=== PATIENT | male | born 1985 | race Hispanic/Latino ===

== ENCOUNTER 2018-11-21 13:30 | Outpatient (AMBR) | payer MEDICAID, SELFPAY ==
--- NOTE | 2018-11-03 11:50 | PT.ODAYNRPT ---
PT Outpatient Daily Note Date of Service: November 03, 2018 OP Daily Note Visit Reasons: knee pain Outpatient Physical Therapy Treatment Date: 11/03/18 Subjective: Pt reports ankle swelling and numbness and he is walking with a cane with low pain. Objective: See F/S for therex MT: PPM into knee flexion x7' with 10 holds to end-range to 107 deg Assessment: Good improvement into knee flexion to 107 deg with overpressure to end-range with ligamentous end-feel. Plan: Continue per POC Length of Time (minutes) of Treatment: 30 Minutes Office Procedures PT Procedures PT Date of Service: 11/03/18 Therapeutic Exercise 30 minutes: Yes
--- NOTE | 2018-11-06 09:49 | PT.ODAYNRPT ---
PT Outpatient Daily Note Date of Service: November 06, 2018 OP Daily Note Visit Reasons: knee pain Outpatient Physical Therapy Treatment Date: 11/06/18 Subjective: Pt arrived to therapy a day early but will be seen today. He forgot the cane at home. Objective: See F/S for therex Assessment: Good improvement into knee flexion with partial body weight squats on [employer] today but gait is assymetrical Plan: Continue per POC Length of Time (minutes) of Treatment: 30 Minutes Office Procedures PT Procedures PT Date of Service: 11/03/18 Therapeutic Exercise 30 minutes: Yes PT Procedures PT Date of Service: 11/06/18 Therapeutic Exercise 30 minutes: Yes
--- NOTE | 2018-11-17 16:14 | PT.ODAYNRPT ---
PT Outpatient Daily Note Date of Service: November 17, 2018 OP Daily Note Visit Reasons: knee pain Outpatient Physical Therapy Treatment Date: 11/17/18 Subjective: The L knee has been feeling better lately but still swells occasionally. Objective: See F/S for therex Assessment: Good improvement with nadine dsouza today. Plan: Continue per POC Length of Time (minutes) of Treatment: 30 Minutes Office Procedures PT Procedures PT Date of Service: 11/03/18 Therapeutic Exercise 30 minutes: Yes PT Procedures PT Date of Service: 11/06/18 Therapeutic Exercise 30 minutes: Yes PT Procedures PT Date of Service: 11/17/18 Therapeutic Exercise 30 minutes: Yes
--- NOTE | 2018-11-21 14:21 | PT.ODAYNRPT ---
PT Outpatient Daily Note Date of Service: November 21, 2018 OP Daily Note Visit Reasons: knee pain Outpatient Physical Therapy Treatment Date: 11/21/18 Subjective: The L knee has been feeling better lately but still swells occasionally. Objective: See F/S for therex Assessment: Good improvement with nadine reps today with moderate tissue irritability at end range knee flexion and squats. He can squat to 50% depth. Plan: Continue per POC Length of Time (minutes) of Treatment: 30 Minutes Office Procedures PT Procedures PT Date of Service: 11/03/18 Therapeutic Exercise 30 minutes: Yes PT Procedures PT Date of Service: 11/06/18 Therapeutic Exercise 30 minutes: Yes PT Procedures PT Date of Service: 11/17/18 Therapeutic Exercise 30 minutes: Yes PT Procedures PT Date of Service: 11/21/18 Therapeutic Exercise 30 minutes: Yes
== END 2018-11-25 23:59 | disposition home or self-care (01) ==
PROVIDERS: Visit Provider Orthopaedic Surgery
DX: M00.862 Arthritis due to other bacteria, left knee (principal); R26.89 Other abnormalities of gait and mobility
CPT/HCPCS: 97110